=== PATIENT | female | born 1935 | race Caucasian/White ===

== ENCOUNTER → 2016-11-28 | Day surgery (SDC) | payer MEDICARE, BC ==
[~2016-11-28] MED LIST: AMLODIPINE BESYL5 MG PO; AMOXICILLIN875 MG PO; ASPIRIN EC81 M1 PO; ASPIRIN PO; ASPIRIN81 M2 PO; ASTELIN137 MCG INH; ASTELIN137 MCG PO; ASTEPRO205.5 MCG/; BUMEX1 MG PO; CALCIUM + D 6001 TA1 PO; CALCIUM +VIT D PO; CALCIUM 500 +1 EAC2 PO; CALCIUM 500 +1 EAC4 PO; CIMZIA200 MG/KIT SUBQ; CIMZIA400 MG/2 M SQ; CITRACAL200 MG PO; CLARINEX5 MG PO; CYMBALTA30 M1 PO; CYMBALTA30 MG PO; DURAGESIC TOP; DURAGESIC1 EACH TD; DURAGESIC25 MCG EXT; DURAGESIC25 MCG TOP; DURAGESIC75 MCG; ESTRACE0.5 MG PO; ESTRADIOL0.5 MG PO; FENTANYL1 EAC3 TOP; FLEXERIL PO; FLEXERIL10 MG PO; FOLIC ACID1 MG PO; HYDROCODON-ACE1 EAC1 PO; HYDROCODON-ACE1 EAC5 PO; HYDROCODON-ACE1 EAC9 PO; KADIAN PO; LASIX20 MG PO; LEVAQUIN PO; LEVAQUIN750 MG PO; LEVOCETIRIZINE D5 MG PO; LIDODERM 5% PATCH TOP; LIDODERM30 EA TOP; LIPITOR PO; LIPITOR20 MG PO; LISINOPRIL PO; LISINOPRIL-HCTZ1 T14 PO; LORTAB 10/500 T1 TAB PO; LORTAB 7.5-5001 TAB PO; METHOCARBAMOL500 MG PO; METOPROLOL SUCC25 MG PO; MOBIC PO; MUCINEX DM ER1 EACH PO; MUCINEX DM1 TAB.SR . PO; MULTI VITAMIN1 EACH PO; MULTI-VITAMIN1 EAC1 PO; MULTI-VITAMIN1 TAB PO; MULTIVITAMIN W-1 TAB PO; MULTIVITAMIN1 UDCAP PO; NABUMETONE PO; NEURONTIN100 MG PO; NEXIUM PO; NIFEREX-150 CAP1 CAP PO; NORCO 10-325 TA1 TAB PO; NORCO 7.5-3251 EACH PO; NORVASC PO; ORENCIA 25250 MG/VIA IV; ORENCIA INFUSION; PAIN CREAM TOP; PLAQUENIL200 MG PO; PODIAPN CAPSUL1 EACH PO; POLYSACC IRON150 MG PO; PREMARIN PO; PROZAC PO; ROBAXIN500 MG PO; SENNA PO; SENOKOT S1 TA1 PO; SENOKOT S1 TAB PO; SIMPONI AR50 MG/4 ML; TERBINAFINE (L250 MG PO; TOPROL XL PO; TYLENOL PM EX-S1 TA3 PO; VITAMIN B 6 PO; VITAMIN B-650 M1 PO; XYZAL5 MG PO; [UNRECOGNIZED DRUG - OTHER] PO; [UNRECOGNIZED DRUG - OTHER] TOP
--- NOTE | ~2016-11-28 | OR ---
Unit #: [id number] #: [id number] Patient: KATHRYN DAVIS [id number] [address] [address] [id number] O MR#: [id number] NAME: KATHRYN DAVIS. ROOM: Date of Procedure: 11/28/2016 Admission Date: 11/28/2016 Surgeon: Bahman Wiggins M.D. : 1935 Attending Physician: Bahman Wiggins M.D. Primary Care Physician: Gómez Brewer D.O. OPERATIVE REPORT PREOPERATIVE DIAGNOSES Post-laminectomy syndrome, degenerative disk disease, spondylolisthesis, back pain, radiculopathy. POSTOPERATIVE DIAGNOSES Post-laminectomy syndrome, degenerative disk disease, spondylolisthesis, back pain, radiculopathy. PROCEDURE PERFORMED Lumbar epidural steroid injection with intravenous sedation and fluoroscopic guidance for needle localization. INDICATIONS FOR PROCEDURE The patient is an 81-year-old female with previous mentioned diagnosis. She had a re-flare of the pain associated with this pathology. She was last treated with epidural steroid injections 8 months ago and did very well until just recently. Based on history, pathology, and symptomatology, we are going to proceed with a repeat injection today. DESCRIPTION OF PROCEDURE The patient was placed in a seated position. Standard monitors were applied. 1 mg Versed was given for sedation and anxiolysis, which was adequate. Vital signs remained stable. Sterile prep and drape then of lumbar area was performed. The skin then at the L3 level was localized with 1% lidocaine. An 18-gauge Hustead needle was then advanced via loss of resistance technique and fluoroscopic guidance in toward the epidural space. After confirming proper positioning with fluoroscopy and radiographic contrast, 80 mg of Depo-Medrol and 4 mL of 0.5% lidocaine were deposited. The patient tolerated the procedure well and was discharged to the recovery room in stable condition. Dictated by... Mikey Harris/eloise TD: 11/28/2016 13:34 JOB #: [id number] Unit #: [id number] #: [id number] Patient: KATHRYN DAVIS OPERATIVE REPORT Page 1 of 1 X Bahman Wiggins MD X PROCEDURE OPERATIVE NOTE
== END | disposition home or self-care (01) ==
LOC: CCSC 09:52
DX: M96.1 Postlaminectomy syndrome, not elsewhere classified (principal); M51.16 Intervertebral disc disorders with radiculopathy, lumbar region; M43.16 Spondylolisthesis, lumbar region; I10 Essential (primary) hypertension; M19.90 Unspecified osteoarthritis, unspecified site; M06.9 Rheumatoid arthritis, unspecified; F32.9 Major depressive disorder, single episode, unspecified; Z79.899 Other long term (current) drug therapy
CPT/HCPCS: J1040; J2250

== ENCOUNTER → 2016-12-05 | Day surgery (SDC) | payer MEDICARE, BC ==
--- NOTE | ~2016-12-05 | OR ---
Unit #: [id number] #: [id number] Patient: KATHRYN DAVIS [id number] [address] [place], [place] [address] [id number] O MR#: [id number] NAME: KATHRYN DAVIS ROOM: Date of Procedure: 12/05/2016 Admission Date: 12/05/2016 Surgeon: Bahman Wiggins M.D. : 1935 Attending Physician: Bahman Wiggins M.D. Primary Care Physician: Gómez Brewer D.O. OPERATIVE REPORT PREOPERATIVE DIAGNOSES Back pain, radiculopathy, spondylolisthesis, post-laminectomy, degenerative disk disease. POSTOPERATIVE DIAGNOSES Back pain, radiculopathy, spondylolisthesis, post-laminectomy, degenerative disk disease. PROCEDURE PERFORMED Lumbar epidural steroid injection with intravenous sedation and fluoroscopic guidance for needle localization. INDICATIONS FOR PROCEDURE The patient is an 81-year-old female with return of back and right much greater than left lower extremity pain due to previously mentioned nonsurgical pathology. The most significant pathology is at the L2-L3 and L3-L4 levels. The patient had initial epidural steroid injection, which resulted in significant improvement in her right leg pain, but has been the most significant presentation in her back. She is still having significant left leg pain. She generally takes 2 or 3 injections to maximize her improvement. DESCRIPTION OF PROCEDURE The patient was placed in the seated position. Standard monitors were applied. 1 mg of Versed was given for sedation and anxiolysis, which were adequate. Vital signs remained stable. Sterile prep and drape then of the lumbar area was performed. The skin at the L3-L4 level was localized with 1% lidocaine. An 18-gauge [employer] needle was then advanced via loss of resistance technique and fluoroscopic guidance in toward the epidural space. After confirming proper positioning with fluoroscopy and radiographic contrast, 80 mg of Depo-Medrol and 4 mL of 0.5% lidocaine were deposited. The patient tolerated the procedure well and was discharged to recovery room in stable condition. Dictated by... Mikey Harris/eloise TD: 12/05/2016 13:23 JOB #: [id number] Unit #: [id number] #: [id number] Patient: RYANLORNAKATHRYN J OPERATIVE REPORT Page 1 of 1 X Bahman Wiggins MD X PROCEDURE OPERATIVE NOTE
== END | disposition home or self-care (01) ==
LOC: CCSC 09:45
DX: M51.16 Intervertebral disc disorders with radiculopathy, lumbar region (principal); M43.16 Spondylolisthesis, lumbar region; I10 Essential (primary) hypertension; M06.9 Rheumatoid arthritis, unspecified; M19.90 Unspecified osteoarthritis, unspecified site; F32.9 Major depressive disorder, single episode, unspecified; Z79.899 Other long term (current) drug therapy; Z98.890 Other specified postprocedural states
CPT/HCPCS: J1040; J2250

== ENCOUNTER → 2016-12-12 | Day surgery (SDC) | payer MEDICARE, BC ==
--- NOTE | ~2016-12-12 | OR ---
Unit #: [id number] #: [id number] Patient: KATHRYN DAVIS [id number] [place], [place] [address] [id number] O MR#: [id number] NAME: KATHRYN DAVIS ROOM: Date of Procedure: 12/12/2016 Admission Date: 12/12/2016 Surgeon: Bahman Wiggins M.D. : 1935 Attending Physician: Bahman Wiggins M.D. Primary Care Physician: Gómez Brewer D.O. OPERATIVE REPORT PREOPERATIVE DIAGNOSES Back pain, radiculopathy, post-laminectomy syndrome, spondylolisthesis, spinal stenosis. POSTOPERATIVE DIAGNOSES Back pain, radiculopathy, post-laminectomy syndrome, spondylolisthesis, spinal stenosis. PROCEDURE PERFORMED Lumbar epidural steroid injection with intravenous sedation and fluoroscopic guidance. INDICATIONS FOR PROCEDURE The patient is an 81-year-old female with return of back and bilateral lower extremity pains due to previously mentioned diagnosis. She was last treated with epidural steroids in 04/2016 and 05/2016. She did well for about 6 months, reported she has acute worsening, that has been a typical response with this patient. Decision was made to repeat epidural steroids, 2 have been done over the last few weeks. The first one helped to settle the back and right leg pain somewhat. Second helped to settle the left leg pain. She is still not back to her baseline level we have been able to achieve in the past, so we are going to proceed with a final injection today. DESCRIPTION OF PROCEDURE The patient was placed in the seated position. Standard monitors were applied. 1 mg of Versed was given for sedation and anxiolysis, which were adequate. Vital signs remained stable. Sterile prep and drape then of the lumbar area was performed. The skin then at the L3-L4 level was localized with 1% lidocaine. An 18-gauge Hustead needle was then advanced via loss of resistance technique and fluoroscopic guidance in toward the epidural space. After confirming proper positioning with fluoroscopy and radiographic contrast, 80 mg of Depo-Medrol and 4 mL of 0.125% bupivacaine was deposited. The patient tolerated the procedure otherwise well and was discharged to the recovery room in stable condition. Dictated by... Bahman Wiggins M.D. Unit #: [id number] #: [id number] Patient: KATHRYN DAVIS VICKI/eloise TD: 12/12/2016 12:20 JOB #: [id number] OPERATIVE REPORT Page 1 of 1 X Bahman Wiggins MD X PROCEDURE OPERATIVE NOTE
== END | disposition home or self-care (01) ==
LOC: CCSC 09:53
DX: M96.1 Postlaminectomy syndrome, not elsewhere classified (principal); M43.16 Spondylolisthesis, lumbar region; M48.02 Spinal stenosis, cervical region; I10 Essential (primary) hypertension; M06.9 Rheumatoid arthritis, unspecified; M19.90 Unspecified osteoarthritis, unspecified site; F32.9 Major depressive disorder, single episode, unspecified; Z79.899 Other long term (current) drug therapy
CPT/HCPCS: J1040; J2250